=== PATIENT | female | born 2000 | race Hispanic/Latino ===

== ENCOUNTER 2023-03-12 14:07 | Emergency (ER) | payer SELFPAY ==
--- NOTE | 2023-03-12 14:46 | EDPHYS ---
Physician Documentation [facility] Name: Geronimo Yang Age: 22 yrs Sex: Female : 2000 Arrival Date: 03/12/2023 Time: 14:07 Bed 4 Private MD: ED Physician Harrison Mendoza HPI: 03/12 16:24 This 22 yrs old Female presents to ER via Ambulatory with complaints of Bleach ms3 Ingestion. 16:24 22-year-old female presents after were drinking approximately 8 ounces of Clorox bleach ms3 mixed with water. Patient states after drinking the bleach her stomach began burning. Patient states the discomfort is a 5/10. Patient denies alleviating or inciting factors. Historical: - Allergies: 14:18 No Known Allergies; cm10 - Home Meds: 14:18 None [Active]; cm10 - PMHx: 14:18 None; cm10 - PSHx: 14:18 section; cm10 - Immunization history:: Adult Immunizations up to date. - Social history:: Smoking status: Patient denies any tobacco usage or history of. ROS: 16:24 Constitutional: Negative for fever, and chills. Neck: Negative for injury, pain, and ms3 swelling, Cardiovascular: Negative for chest pain, and palpitations. Respiratory: Negative for shortness of breath, cough, wheezing, and pleuritic chest pain. 16:24 MS/Extremity: Negative for injury and deformity, Skin: Negative for injury, rash, and discoloration. 16:24 Abdomen/GI: Positive for abdominal pain. 16:24 All other systems are negative. Exam: 16:24 Constitutional: This is a well developed, well nourished patient who is awake, alert, ms3 and in no acute distress. Head/Face: Normocephalic, atraumatic. Neck: Trachea midline, no cervical lymphadenopathy. Supple, full range of motion without nuchal rigidity, or vertebral point tenderness. No Meningismus. Chest/axilla: Normal chest wall appearance and motion. Nontender with no deformity. Cardiovascular: Regular rate and rhythm with a normal S1 and S2. No gallops, murmurs, or rubs. Normal PMI, no JVD. No pulse deficits. Respiratory: Lungs have equal breath sounds bilaterally, clear to auscultation and percussion. No rales, rhonchi or wheezes noted. No increased work of breathing, no retractions or nasal flaring. Skin: Warm, dry with normal turgor. Normal color with no rashes, no lesions, and no evidence of cellulitis. MS/ Extremity: Pulses equal, no cyanosis. Neurovascular intact. Full, normal range of motion. 16:24 Abdomen/GI: Inspection: abdomen appears normal, Bowel sounds: normal, Palpation: mild abdominal tenderness, in the epigastric area. Vital Signs: 14:16 BP 121 / 95; Pulse 107; Resp 16; Temp 98.2; Pulse Ox 100% ; Pain 5/10; cm10 14:28 BP 121 / 95; Pulse 89; Resp 18; Pulse Ox 100% on R/A; Pain 0/10; ld1 14:16 Pain Scale: Adult cm10 14:28 Pain Scale: Adult ld1 MDM: 14:10 Patient medically screened. ms3 14:25 ED course: Poison control recommends drinking 4-6 oz more water.. ms3 16:24 Data reviewed: vital signs, nurses notes, and as a result, I will discharge patient. ms3 Management of patient was discussed with the following: Poison control who recommended drinking 4-6 more ounces of water. Counseling: I had a detailed discussion with the patient and/or guardian regarding: the historical points, exam findings, and any diagnostic results supporting the discharge/admit diagnosis, the need for outpatient follow up, to return to the emergency department if symptoms worsen or persist or if there are any questions or concerns that arise at home. Special discussion: I discussed with the patient/guardian in detail that at this point there is no indication for admission to the hospital. It is understood, however, that if the symptoms persist or worsen the patient needs to return immediately for re-evaluation. Administered Medications: 14:56 Drug: Famotidine PO 20 mg Route: PO; ld1 14:56 Drug: Alum-Mag Hydroxide-Simeth PO Suspension (200 mg-200 mg-20 mg/5 mL) 30 ml Route: ld1 PO; Disposition Summary: 03/12/23 14:45 Discharge Ordered Location: Home ms3 Condition: Stable ms3 Diagnosis - Bleach ingestion ms3 - Upper abdominal pain, unspecified ms3 Followup: ms3 - With: Torrey Ibrahim, DO - When: 2 - 3 days - Reason: Recheck today's complaints Discharge Instructions: - Discharge Summary Sheet ms3 - Abdominal Pain, Adult ms3 Forms: - Medication Reconciliation Form ms3 - Thank You Letter ms3 - Antibiotic Education ms3 - Prescription Opioid Use ms3 - Patient Portal Instructions ms3 Prescriptions: - Pepcid 20 mg Oral Tablet - take 1 tablet by ORAL route once daily for 10 days; 10 tablet; Refills: 0, ms3 Product Selection Permitted Signatures: Harrison Mendoza DO DO ms3 Joslyn Mendoza RN RN ld1 Fernanda Valladares RN RN cm10
--- NOTE | 2023-03-12 14:46 | ER ---
Nurse's Notes [facility] Name: Geronimo Yang Age: 22 yrs Sex: Female : 2000 Arrival Date: 03/12/2023 Time: 14:07 Bed 4 Private MD: Diagnosis: Bleach ingestion;Upper abdominal pain, unspecified Presentation: 03/12 14:16 Chief complaint: Patient states: drinking approximately less than half of a water cm10 bottle of bleach and water accidentally. Pt states that she immediately vomited and is complaining that her stomach is burning. Coronavirus screen: Vaccine status: Patient reports being unvaccinated. Ebola Screen: No symptoms or risks identified at this time. Initial Sepsis Screen: Does the patient meet any 2 criteria? No. Patient's initial sepsis screen is negative. Does the patient have a suspected source of infection? No. Patient's initial sepsis screen is negative. Risk Assessment: Do you want to hurt yourself or someone else? Patient reports no desire to harm self or others. Onset of symptoms was March 12, 2023. 14:16 Method Of Arrival: Ambulatory cm10 14:16 Acuity: PRETTY 3 cm10 Historical: - Allergies: 14:18 No Known Allergies; cm10 - Home Meds: 14:18 None [Active]; cm10 - PMHx: 14:18 None; cm10 - PSHx: 14:18 section; cm10 - Immunization history:: Adult Immunizations up to date. - Social history:: Smoking status: Patient denies any tobacco usage or history of. Screenin:28 [facility] ED Fall Risk Assessment (Adult) History of falling in the last 3 months, ld1 including since admission No falls in past 3 months (0 pts). Abuse screen: Denies threats or abuse. Denies injuries from another. Nutritional screening: No deficits noted. Tuberculosis screening: No symptoms or risk factors identified. Assessment: 14:28 General: Appears in no apparent distress. comfortable, Behavior is calm, cooperative, ld1 appropriate for age. Pain: Denies pain. Neuro: Level of Consciousness is awake, alert, obeys commands, Oriented to person, place, time, situation, Appropriate for age. Cardiovascular: Capillary refill < 3 seconds Patient's skin is warm and dry. Rhythm is sinus rhythm. Respiratory: Airway is patent Respiratory effort is even, unlabored. GI: Abdomen is round non-distended, Reports nausea. : No signs and/or symptoms were reported regarding the genitourinary system. EENT: No signs and/or symptoms were reported regarding the EENT system. Derm: No signs and/or symptoms reported regarding the dermatologic system. Musculoskeletal: No signs and/or symptoms reported regarding the musculoskeletal system. 14:30 Reassessment: Poison control instructed patient to drink 4-6 oz of water. Pt drinking ld1 water at this time. Vital Signs: 14:16 BP 121 / 95; Pulse 107; Resp 16; Temp 98.2; Pulse Ox 100% ; Pain 5/10; cm10 14:28 BP 121 / 95; Pulse 89; Resp 18; Pulse Ox 100% on R/A; Pain 0/10; ld1 14:16 Pain Scale: Adult cm10 14:28 Pain Scale: Adult ld1 ED Course: 14:09 Patient arrived in ED. rg4 14:09 Harrison Mendoza DO is Attending Physician. ms3 14:18 Triage completed. cm10 14:19 Arm band placed on Patient placed in an exam room, on a stretcher. cm10 14:19 Poison Control notified at this time. Case # [id number]. Per Radha pt to drink more water cm10 approximately 4-6oz more. 14:28 Joslyn Mendoza, MORIAH is Primary Nurse. ld1 14:28 Patient has correct armband on for positive identification. Placed in gown. Bed in low ld1 position. Call light in reach. Side rails up X2. puppet master on. Pulse ox on. NIBP on. Door closed. Noise minimized. Warm blanket given. 14:28 No provider procedures requiring assistance completed. ld1 14:44 Torrey Ibrahim DO is Referral Physician. ms3 Administered Medications: 14:56 Drug: Famotidine PO 20 mg Route: PO; ld1 14:56 Drug: Alum-Mag Hydroxide-Simeth PO Suspension (200 mg-200 mg-20 mg/5 mL) 30 ml Route: ld1 PO; Medication: 14:43 VIS not applicable for this client. ph Outcome: 14:45 Discharge ordered by MD. ms3 14:59 Patient left the ED. hb Signatures: Maddy Voss RN RN ph Suzanne Clark RN RN hb Roberto Abrahami rg4 Harrison Mendoza DO DO ms3 Joslyn Mendoza, RN RN ld1 Fernanda Valladares, RN RN cm10
[2023-03-12] MEDS ORDERED: MAGNES/ALUMIN/SIMET 30ML UCUP ONE (15:03)
[2023-03-12] MEDS ORDERED: FAMOTIDINE 20 MG TAB ONE (15:03)
[2023-03-12 15:04] VITALS: BP 121/95; TEMP 98.2; O2SAT 100
== END 2023-03-12 14:59 | disposition home or self-care (01) ==
LOC: ER 14:07
DX: T54.91XA Toxic effect of unspecified corrosive substance, accidental (unintentional), initial encounter (principal); R10.13 Epigastric pain
CPT/HCPCS: 99284